=== PATIENT | male | born 1965 | race Caucasian/White ===

== ENCOUNTER 2019-07-29 13:36 | Emergency (ER) | payer OTHER ==
[~2019-07-29] VITALS: Ht 170.2 cm; Wt 75.0 kg
[2019-07-29] MEDS ORDERED: METO1TAB7 (13:47)
[2019-07-29] MEDS ORDERED: LISI40TA (13:47)
[2019-07-29] MEDS ORDERED: NS 1,000 ML IV ONE (15:30)
[2019-07-29 15:50] LABS: BASO # 0.1 10^3/uL (0.0-0.2); BASO % 0.6 % (0.0-1.0); EOS % 0.3 % (0.0-3.0); HEMATOCRIT 50.2 % (42.0-52.0); HEMOGLOBIN 17.4 g/dl (13.5-17.5); LYMPH # 0.9 10^3/uL (1.5-5.0); LYMPH % 11.9 % (24.0-44.0); MEAN CORPUSCULAR HEMOGLOBIN 33.6 pg (27.0-33.0); MEAN CORPUSCULAR HGB CONC 34.7 g/dl (32.0-36.5); MEAN CORPUSCULAR VOLUME 96.9 fl (80.0-96.0); MONO # 0.6 10^3/uL (0.0-0.8); MONO % 7.2 % (0.0-5.0); NEUTROPHILS # 6.3 10^3/uL (1.5-8.5); NEUTROPHILS % 79.6 % (36.0-66.0); PLATELET COUNT, AUTOMATED 257 10^3/uL (150-450); RED BLOOD COUNT 5.18 10^6/uL (4.30-6.10); WHITE BLOOD COUNT 7.9 10^3/uL (4.0-10.0)
[2019-07-29 16:19] LABS: ALBUMIN 4.6 GM/DL (3.2-5.2); ALT/SGPT 70 U/L (12-78); BILIRUBIN,DIRECT 0.2 MG/DL (0.0-0.2); BILIRUBIN,TOTAL 1.2 MG/DL (0.2-1.0); BLOOD UREA NITROGEN 11 MG/DL (7-18); CALCIUM LEVEL 9.8 MG/DL (8.5-10.1); CARBON DIOXIDE LEVEL 23 MEQ/L (21-32); CHLORIDE LEVEL 90 MEQ/L (98-107); CREATININE FOR GFR 0.87 MG/DL (0.70-1.30); GLOMERULAR FILTRATION RATE > 60.0 (>56); GLUCOSE, FASTING 119 MG/DL (70-100); LIPASE 123 U/L (73-393); POTASSIUM SERUM 4.5 MEQ/L (3.5-5.1); SODIUM LEVEL 127 MEQ/L (136-145); TOTAL PROTEIN 8.5 GM/DL (6.4-8.2)
[2019-07-29] MEDS ORDERED: ISOVUE-370 76% 100ML VIAL (Q9967) As Ordered ONE (16:43)
[2019-07-29] MEDS ORDERED: REGL10TA6 PO (18:02)
[2019-07-29] MEDS ORDERED: METOCLOPRAMIDE 10 MG TAB PO ONE (18:15)
[2019-07-29 18:16] VITALS: BP 148/92
--- NOTE | 2019-07-30 07:33 | REP ---
CT ABDOMEN AND PELVIS WITH IV CONTRAST: TECHNIQUE: Axial contrast enhanced images from the lung bases to the pubic symphysis using 100 mL Isovue 370 intravenous contrast material with multiplanar reformations. Comparison 05/23/2015. In the visualized lung bases there is stable pleural plaquing along both diaphragms, left greater than right. There is diffuse fatty infiltration of the liver. Gallbladder is grossly unremarkable. Spleen is normal in size with no intrinsic abnormality. There is stable adrenal gland thickening. Pancreas demonstrates no mass. Kidneys are unremarkable with no hydronephrosis. There is mild atherosclerotic calcification of the abdominal aorta without aneurysm. I see no adenopathy, free air, or free fluid. No bowel wall thickening is seen. There is diffuse colonic diverticulosis. I do not see evidence of diverticulitis. The appendix is normal. No pelvic mass is seen. Urinary bladder is not well distended and not well evaluated. There is mild loss of height of the L1 vertebral body which is new when compared to the prior study of 2014. IMPRESSION: No evidence of appendicitis, free air, or free fluid. Colonic diverticulosis without acute diverticulitis. New mild compression of L1 vertebral body since 2015 is of indeterminate age. Diffuse fatty infiltration of the liver. Stable adrenal gland thickening. Electronically Signed by Jaylon Blankenship MD 07/30/2019 07:51 P
== END 2019-07-29 18:21 | disposition home or self-care (01) ==
LOC: M ED 13:36
DX: E86.0 Dehydration (principal); I10 Essential (primary) hypertension
CPT/HCPCS: 74177; 80048; 80076; 81001; 83690; 85025; 96360; 96361; 99284; Q9967

== ENCOUNTER → 2021-01-02 | Outpatient (CLI) | payer OTHER ==
[~2021-01-02] MED LIST: LISI40TA4; METO1TAB7; REGL10TA6 PO
--- NOTE | 2021-01-02 08:42 | REP ---
INDICATION: LEFT LOWER QUADRANT ABD TENDERNESS *LAB 1, XRY 2*. COMPARISON: None. TECHNIQUE: Abdominal series: Three views including upright views of the chest and abdomen. FINDINGS: Upright chest radiograph is unremarkable. There is no evidence of infiltrate or free subdiaphragmatic air. Heart size is normal. Pulmonary vasculature is not increased. Pleural angles are sharp. Supine and erect views of the abdomen demonstrate small air-fluid levels in the right colon. No large or small bowel dilation is seen. Bowel gas pattern is otherwise unremarkable. The psoas margins at the flank stripes are intact. No mass, organomegaly, or pathologic calcification is appreciated. No bony destructive lesion is seen. IMPRESSION: There are a few right colonic air-fluid levels. This may reflect enteritis. No evidence of obstruction or free air.. <Electronically signed by Nicholas Hassan > 01/02/21 0835
[2021-01-02 08:43] LABS: BASO # 0.1 10^3/uL (0.0-0.2); BASO % 0.5 % (0.0-1.0); EOS # 0.2 10^3/uL (0.0-0.5); HEMATOCRIT 46.8 % (42.0-52.0); HEMOGLOBIN 15.7 g/dl (13.5-17.5); LYMPH # 1.5 10^3/uL (1.5-5.0); LYMPH % 13.7 % (24.0-44.0); MEAN CORPUSCULAR HEMOGLOBIN 33.3 pg (27.0-33.0); MEAN CORPUSCULAR HGB CONC 33.5 g/dl (32.0-36.5); MEAN CORPUSCULAR VOLUME 99.2 fl (80.0-96.0); MONO # 1.1 10^3/uL (0.0-0.8); MONO % 9.6 % (2.0-8.0); NEUTROPHILS # 8.2 10^3/uL (1.5-8.5); NEUTROPHILS % 73.8 % (36.0-66.0); PLATELET COUNT, AUTOMATED 236 10^3/uL (150-450); RED BLOOD COUNT 4.72 10^6/uL (4.30-6.10); WHITE BLOOD COUNT 11.2 10^3/uL (4.0-10.0)
[2021-01-02 09:15] LABS: ALBUMIN 3.9 GM/DL (3.2-5.2); ALT/SGPT 57 U/L (12-78); BILIRUBIN,TOTAL 0.8 MG/DL (0.2-1.0); BLOOD UREA NITROGEN 12 MG/DL (7-18); CARBON DIOXIDE LEVEL 25 MEQ/L (21-32); CHLORIDE LEVEL 94 MEQ/L (98-107); CREATININE FOR GFR 1.06 MG/DL (0.70-1.30); GLOMERULAR FILTRATION RATE > 60.0 (>56); GLUCOSE, FASTING 158 MG/DL (70-100); LIPASE 114 U/L (73-393); POTASSIUM SERUM 4.2 MEQ/L (3.5-5.1); SODIUM LEVEL 128 MEQ/L (136-145); TOTAL PROTEIN 7.4 GM/DL (6.4-8.2)
== END ==
LOC: M LAB 08:07
PROVIDERS: ATTEND Physician Assistant
DX: R10.814 Left lower quadrant abdominal tenderness (principal); R19.7 Diarrhea, unspecified

== ENCOUNTER → 2023-09-15 | Outpatient (REF) | payer OTHER | LOC: M LAB REF 18:09 | PROVIDERS: ATTEND Physician Assistant | DX: J34.81 Nasal mucositis (ulcerative) (principal); B95.8 Unspecified staphylococcus as the cause of diseases classified elsewhere ==